=== PATIENT | female | born 2000 | race Caucasian/White ===

== ENCOUNTER 2025-03-26 20:28 | Emergency (ER) | payer OTHER ==
[~2025-03-26] VITALS: Ht 162.6 cm; Wt 63.6 kg
[2025-03-26 20:43] VITALS: TEMP 98.6
[2025-03-26 21:30] LABS: PLATELET COUNT (AUTO) 381 K/uL (150-450); RED BLOOD CELL COUNT(AUTO) 4.76 MIL/uL (4.00-5.20); RED CELL DISTRIBUTION WIDTH 13.1 % (11.5-14.5); WHITE BLOOD COUNT (AUTO) 9.5 K/uL (4.5-11.0)
[2025-03-26 21:36] LABS: CALCIUM, TOTAL 9.4 mg/dL (8.8-10.5); CREATININE 0.84 mg/dL (0.60-1.30); GLOMERULAR FILTR. RATE CALC > 60 mL/min (>60); GLUCOSE,RANDOM 97 mg/dL (70-110); SODIUM SERUM 139 mmol/L (136-145); UREA NITROGEN, BLOOD 13 mg/dL (7-18)
[2025-03-26 21:53] LABS: ASPARTATE AMINOTRANSFERASE 15.0 U/L (15-37); TOTAL PROTEIN, SERUM 7.6 g/dL (6.4-8.2)
[2025-03-26] MEDS: ONDANSETRON 4 MG TABLET PO ONE (23:11)
[2025-03-27] MEDS ORDERED: ONDA-104 PO (00:48)
[2025-03-27] MEDS ORDERED: LOPE-232 PO (00:48)
[2025-03-27] MEDS ORDERED: DICY-1 PO (00:48)
[2025-03-27] MEDS ORDERED: FAMO20 PO (00:48)
[2025-03-27 00:59] VITALS: BP 113/70; PULSE 77; RESP 15; O2SAT 99
== END 2025-03-27 01:04 | disposition home or self-care (01) ==
LOC: EMS 20:28
DX: K21.9 Gastro-esophageal reflux disease without esophagitis (principal); K52.9 Noninfective gastroenteritis and colitis, unspecified; J45.909 Unspecified asthma, uncomplicated; Z88.8 Allergy status to other drugs, medicaments and biological substances
CPT/HCPCS: 99283; 80048; 80076; 84703; 85025; 36415; Q0162